=== PATIENT | male | born 1995 | race Caucasian/White ===

== ENCOUNTER 2023-04-20 00:40 | Emergency (ER) | payer SELFPAY ==
[~2023-04-20] VITALS: Ht 167.6 cm; Wt 90.0 kg
[2023-04-20 00:42] VITALS: BP 116/68; PULSE 76; RESP 14; TEMP 98.2; O2SAT 98
[2023-04-20] MEDS ORDERED: ACET-2708 MT (04:10)
== END 2023-04-20 04:40 | disposition home or self-care (01) ==
LOC: ER 00:40
DX: S09.90XA Unspecified injury of head, initial encounter (principal); Y08.89XA Assault by other specified means, initial encounter; Y93.89 Activity, other specified; Y92.89 Other specified places as the place of occurrence of the external cause; Y99.8 Other external cause status
CPT/HCPCS: 73030; 99284